=== PATIENT | female | born 1985 | race African-American/Black ===

== ENCOUNTER 2019-09-22 20:04 | Emergency (ER) | payer OTHER ==
[~2019-09-22] VITALS: Ht 149.9 cm; Wt 111.1 kg
[2019-09-22 20:38] LABS: BASOPHILS 1.3 % (0.0-2.0); EOSINOPHILS 2.7 % (0.0-3.0); HEMATOCRIT 40.2 % (37.0-47.0); HEMOGLOBIN 13.2 gm/dL (12.0-15.0); LYMPHOCYTES 26.9 % (24.0-44.0); MCH 28.1 pg (26.0-34.0); MCHC 32.7 g/dL (28.0-37.0); MCV 85.9 fL (80.0-100.0); MONOCYTES 10.9 % (1.0-8.0); PLATELET COUNT 307 thou/uL (150-400); POLYS 58.2 % (36.0-66.0); RBC 4.68 mil/uL (4.20-5.00); RDW 14.3 % (10.5-14.5); WBC 10.3 thou/uL (4.0-11.0)
[2019-09-22 20:43] LABS: ANION GAP 5 mmol/L (7-16); BUN 9 mg/dL (7-18); CALCIUM 9.5 mg/dL (8.5-10.1); CHLORIDE 102 mmol/L (98-107); CO2 30 mmol/L (21-32); CREATININE 0.7 mg/dL (0.6-1.0); GLUCOSE 104 mg/dL (74-106); POTASSIUM 3.8 mmol/L (3.5-5.1); SODIUM 137 mmol/L (136-145)
[2019-09-22 20:50] LABS: ALBUMIN 3.6 g/dL (3.4-5.0); DIRECT BILIRUBIN < 0.1 mg/dL (<0.1-0.3); LIPASE 153 U/L (73-393); SGOT 23 U/L (15-37); SGPT 28 U/L (30-65); TOTAL BILIRUBIN 0.2 mg/dL (<0.1-1.0); TOTAL PROTEIN 7.9 g/dL (6.4-8.2)
[2019-09-22] MEDS ORDERED: LISINOPRIL-HCT1 EACH PO (21:03)
[2019-09-22 22:18] LABS: URINE BILIRUBIN NEGATIVE (Negative); URINE BLOOD NEGATIVE (Negative); URINE CLARITY CLEAR; URINE COLOR YELLOW; URINE GLUCOSE-RANDOM* NEGATIVE (Negative); URINE KETONES NEGATIVE (Negative); URINE LEUKOCYTES-REFLEX NEGATIVE (Negative); URINE NITRITE-REFLEX NEGATIVE (Negative); URINE PROTEIN (DIPSTICK) NEGATIVE (Negative); URINE SPECIFIC GRAVITY 1.015 (1.005-1.035); URINE UROBILINOGEN 0.2 E.U./dl (0.2-1.0)
[2019-09-22] MEDS ORDERED: ONDANSETRON HCL4 M2 PO (22:28)
[2019-09-22] MEDS ORDERED: BENTYL 20 MG TA20 M1 PO (22:29)
[2019-09-22 23:20] VITALS: BP 146/83
== END 2019-09-22 23:20 | disposition home or self-care (01) ==
LOC: ER 20:04
PROVIDERS: Nurse Practitioner
DX: A05.9 Bacterial foodborne intoxication, unspecified (principal); A08.4 Viral intestinal infection, unspecified; R11.2 Nausea with vomiting, unspecified

== ENCOUNTER 2019-12-11 13:57 | Emergency (ER) | payer OTHER ==
[~2019-12-11] VITALS: Ht 149.9 cm; Wt 111.1 kg
[~2019-12-11 13:57] MED LIST: BENTYL 20 MG TA20 M1 PO; LISINOPRIL-HCT1 EACH PO; ONDANSETRON HCL4 M2 PO
[2019-12-11 13:58] VITALS: BP 141/83
[2019-12-11] MEDS ORDERED: NORFLEX100 MG PO (14:58)
[2019-12-11] MEDS ORDERED: IBUPROFEN 800800 M1 PO (14:58)
== END 2019-12-11 15:01 | disposition home or self-care (01) ==
LOC: ER 13:57
DX: S29.012A Strain of muscle and tendon of back wall of thorax, initial encounter (principal); M25.561 Pain in right knee; M25.512 Pain in left shoulder; I10 Essential (primary) hypertension; Z88.7 Allergy status to serum and vaccine; V89.0XXA Person injured in unspecified motor-vehicle accident, nontraffic, initial encounter; Y93.89 Activity, other specified; Y92.89 Other specified places as the place of occurrence of the external cause; Y99.8 Other external cause status

== ENCOUNTER 2021-03-28 16:51 | Emergency (ER) | payer OTHER ==
[~2021-03-28] VITALS: Ht 149.9 cm; Wt 104.3 kg
[~2021-03-28 16:51] MED LIST changes: +IBUPROFEN 800800 M1 PO; +NORFLEX100 MG PO
[2021-03-28] MEDS ORDERED: HYDROCHLOROTHIA25 M1 PO (17:59)
[2021-03-28] MEDS ORDERED: PROCARDIA XL30 MG PO (18:00)
[2021-03-28] MEDS ORDERED: NORCO5 PO (18:40)
[2021-03-28] MEDS ORDERED: FLEXERIL PO (18:40)
[2021-03-28 18:51] VITALS: BP 197/101
== END 2021-03-28 19:10 | disposition home or self-care (01) ==
LOC: ER 16:51
DX: S12.600A Unspecified displaced fracture of seventh cervical vertebra, initial encounter for closed fracture (principal); S22.019A Unspecified fracture of first thoracic vertebra, initial encounter for closed fracture; S20.211A Contusion of right front wall of thorax, initial encounter; S93.601A Unspecified sprain of right foot, initial encounter; S00.83XA Contusion of other part of head, initial encounter; I10 Essential (primary) hypertension; F17.210 Nicotine dependence, cigarettes, uncomplicated; Z79.899 Other long term (current) drug therapy; Z88.7 Allergy status to serum and vaccine; V43.52XA Car driver injured in collision with other type car in traffic accident, initial encounter; Y93.I9 Activity, other involving external motion; Y92.488 Other paved roadways as the place of occurrence of the external cause; Y99.8 Other external cause status